=== PATIENT | male | born 1980 | race Caucasian/White ===

== ENCOUNTER 2017-02-13 03:24 | Emergency (ER) | payer MEDICAID ==
[~2017-02-13] VITALS: Ht 172.7 cm; Wt 78.0 kg
[~2017-02-13 03:24] MED LIST: BACTDS PO; CEPH-443 PO; HYDR-3498 PO
[2017-02-13 03:28] VITALS: Ht 172.7 cm; Wt 78.0 kg
--- NOTE | 2017-02-13 03:34 | ERA ---
ER Documentation Chief Complaint Date/Time DATE: 02/13/17 TIME: 03:34 Chief Complaint Bilateral Flank pain x3 days. No Dysuria or Frequency in Urination HPI The patient is a 36-year-old male, presenting to the ER because of bilateral back pain, more the right than the left intermittently for the last 3 days, worse today. The pain is 8/10, worse with movement. He denies fever, chills, neck pain, chest pain, dyspnea, complains of minimal vague right-sided abdominal discomfort. He denies dysuria, diarrhea, hematuria. He does smoke and drinks socially, denies illicit drug Past medical/surgical history: None ROS All systems reviewed and are negative except as per history of present illness. Medications Home Meds Active Scripts Ibuprofen* (Motrin*) 600 Mg Tab, 600 MG PO Q6H Y for PAIN AND OR ELEVATED TEMP, #20 TAB Prov:ASHLYN REMY MD 02/13/17 Hydrocodone/Acetaminophen ([place] 5-325 Tablet) 1 Each Tablet, 1 EACH PO QID for SEVERE PAIN LEVEL 7-10, #10 TAB Prov:ASHLYN REMY MD 02/13/17 Hydrocodone Bit-Acetaminophen* ([place]*) 5-325 Mg Tab, 1 TAB PO Q6 Y for PAIN, # 7 TAB Prov:ZOE STEWART 07/03/15 Sulfamethoxazole-Trimethoprim* (Bactrim* DS) 800-160 Mg Tab, 1 TAB PO BID for 7 Days, TAB Prov:ZOE STEWART 07/03/15 Cephalexin* (Keflex*) 500 Mg Capsule, 500 MG PO QID for 7 Days, CAP Prov:ZOE STEWART 07/03/15 Allergies Allergies: Coded Allergies: No Known Allergy (Unverified , 07/03/15) PMhx/Soc Hx Miscellaneous Medical Probl: No Hx Substance Use: No Hx Tobacco Use: Yes Physical Exam Vitals Vital Signs Date Time Temp Pulse Resp B/P Pulse Ox O2 Delivery O2 Flow Rate FiO2 02/13/17 03:28 98.3 73 20 118/72 99 Physical Exam Const: No acute distress. Head: Atraumatic. Eyes: Normal Conjunctiva. ENT: Normal External Ears, Nose and Mouth. Neck: Full range of motion. No meningismus. Resp: Clear to auscultation bilaterally. Cardio: Regular rate and rhythm, no murmurs. Abd: Soft, non distended, normal bowel sounds, right flank tenderness , no right lower quadrant, right upper quadrant, epigastric, rigidity, rebound tenderness Skin: No petechiae or rashes. Back: No midline or flank tenderness. Ext: No cyanosis, or edema. Neur: Awake and alert. No focal deficit Psych: Normal Mood and Affect. Result Diagram: 02/13/17 0345 02/13/17 0345 Results 24 hrs Laboratory Tests Test 02/13/17 03:45 02/13/17 04:00 White Blood Count 9.310^3/ul Red Blood Count 5.0110^6/ul Hemoglobin 14.7g/dl Hematocrit 43.3% Mean Corpuscular Volume 86.4fl Mean Corpuscular Hemoglobin 29.3pg Mean Corpuscular Hemoglobin Concent 33.9g/dl Red Cell Distribution Width 13.2% Platelet Count 23881^3/UL Mean Platelet Volume 9.3fl Neutrophils % 48.2% Lymphocytes % 41.7% Monocytes % 6.4% Eosinophils % 2.2% Basophils % 0.5% Nucleated Red Blood Cells % 0.0/100WBC Neutrophils # 4.510^3/ul Lymphocytes # 3.910^3/ul Monocytes # 0.610^3/ul Eosinophils # 0.210^3/ul Basophils # 0.110^3/ul Nucleated Red Blood Cells # 0.010^3/ul Sodium Level 143mmol/L Potassium Level 4.1mmol/L Chloride Level 104mmol/L Carbon Dioxide Level 24mmol/L Anion Gap 19 Blood Urea Nitrogen 12mg/dl Creatinine 0.78mg/dl Glucose Level 106mg/dl Calcium Level 9.1mg/dl Total Bilirubin 0.3mg/dl Direct Bilirubin 0.00mg/dl Indirect Bilirubin 0.3mg/dl Aspartate Amino Transf (AST/SGOT) 59IU/L Alanine Aminotransferase (ALT/SGPT) 67IU/L Alkaline Phosphatase 102IU/L Total Protein 7.8g/dl Albumin 4.6g/dl Globulin 3.20g/dl Albumin/Globulin Ratio 1.43 Lipase 82U/L Bedside Urine pH (LAB) 5.0 Bedside Urine Protein (LAB) Negative Bedside Urine Glucose (UA) Negative Bedside Urine Ketones (LAB) Negative Bedside Urine Blood 2+ Bedside Urine Nitrite (LAB) Negative Bedside Urine Leukocyte Esterase (L Negative Current Medications Medications (Trade) Dose Ordered Sig/Janine Route PRN Reason Start Time Stop Time Status Last Admin Dose Admin Sodium Chloride (NS) 1,000 ml @ 1,000 mls/hr Q1H ONCE IV 02/13/17 04:00 02/13/17 04:59 02/13/17 03:58 Morphine Sulfate (morphine) 4 mg ONCE STAT IV 02/13/17 03:54 02/13/17 03:56 DC 02/13/17 03:59 Ondansetron HCl (Zofran Inj) 4 mg ONCE STAT IV 02/13/17 03:54 02/13/17 03:56 DC 02/13/17 03:58 Ketorolac Tromethamine (Toradol) 30 mg ONCE STAT IV 02/13/17 04:26 02/13/17 04:27 UNV Procedures/[place] [id number] Radiology Main Line: [phone] DIAGNOSTIC IMAGING REPORT Patient: TANJA HANEY : 1980 Age: 36 Sex: M MR #: [id number] DOS: 02/13/17 0354 Ordering MD: ASHLYN REMY MD Location: E/R Room/Bed: PROCEDURE: CT Abdomen and pelvis without contrast. CLINICAL INDICATION: Abdominal pain. TECHNIQUE: CT scan of the abdomen and pelvis was performed on a multi- detector high-resolution CT scanner. Contiguous axial images were obtained from the lung bases to the ischial tuberosities without intravenous contrast. Coronal and sagittal reformatted images were also obtained. Images were reviewed on the PACS workstation. One or more of the following dose reduction techniques were used: - Automated exposure control. - Adjustment of the mA and/or kV according to patient size. - Use of iterative reconstruction technique. Exam CTD/vol = 12.21 mGy. Total exam DLP = 749.20 mGy-cm. COMPARISON: None. FINDINGS: Evaluation of the lung bases demonstrates minimal bibasilar atelectasis. Abdomen: The liver is normal in size. There is no focal mass or dilatation of the biliary tree. The gallbladder is not distended. The spleen, pancreas and bilateral adrenal glands are within normal limits. Bilateral kidneys are normal in size with no contour deforming mass identified. There is no radiopaque renal or ureteral calculus identified. There is no hydronephrosis or hydroureter. There is no retroperitoneal adenopathy. The abdominal aorta is of normal caliber. There is no abnormal bowel wall thickening or distension. There is no bowel obstruction or free air. A normal appendix is identified. There is no diverticulosis or diverticulitis. There is no ascites. Pelvis: The bladder is unremarkable. There is a small right inguinal hernia containing fat. The prostate and seminal vesicles are within normal limits. There is no significant pelvic adenopathy or free fluid. Evaluation of the osseous structures demonstrates no suspicious lytic or blastic lesion. IMPRESSION: No acute abnormality identified within the abdomen and pelvis. Small right inguinal hernia containing fat. .Merrill Cesar MD, MD Date Time Electronically viewed and signed by .Merrill Cesar MD, MD on 02/13/2017 04:17 .T/ CC: ASHLYN REMY MD MEDICAL MAKING DECISION: The patient is a 36-year-old male, presenting with acute right flank pain, acute hematuria, most likely due to renal colic, acute dehydration. He was treated with 1 L normal saline for acute dehydration, morphine 4 mg IV and Toradol 30 mg IV for pain and Zofran formula IV for nausea with good response. The differential diagnoses considered include but are not limited to cholelithiasis, cholecystitis, cystitis, pancreatitis, hepatitis, gastritis, peptic ulcer disease, gastric ulcer, appendicitis, diverticulitis, cholangitis, choledocholithiasis, partial small bowel obstruction. Departure Diagnosis: Primary Impression: Right flank pain Additional Impression: Hematuria Condition: Good Comments He was discharged with [place] and Motrin I discussed the findings with the patient. I advised the patient to follow-up with the primary physician in about 1-2 days, sooner if needed and return if any concern. ASHLYN REMY MD Feb 13, 2017 03:34
[2017-02-13] MEDS ORDERED: ONDANSETRON 4 MG INJ IV STA (03:54)
[2017-02-13] MEDS ORDERED: morphine 4 MG/ML VIAL IV STA (03:54)
[2017-02-13] MEDS ORDERED: SOD CHLORIDE 0.9% 1,000 ML IV ONE (04:00)
[2017-02-13 04:01] LABS: URINE BLOOD (Dip) POC 2+ (NEGATIVE)
[2017-02-13 04:07] LABS: ADD SCAN DIFF NO
[2017-02-13 04:12] LABS: BASOPHIL # 0.1 10^3/ul (0.0-0.1); BASOPHILS % 0.5 % (0.0-2.0); EOSINOPHILS # 0.2 10^3/ul (0.0-0.5); EOSINOPHILS % 2.2 % (0.0-7.0); HEMATOCRIT 43.3 % (42.0-52.0); HEMOGLOBIN 14.7 g/dl (14.0-18.0); LYMPHOCYTES # 3.9 10^3/ul (0.8-2.9); LYMPHOCYTES % 41.7 % (15.0-51.0); MEAN CORPUSCULAR HEMOGLOBIN 29.3 pg (29.0-33.0); MEAN CORPUSCULAR HGB CONC 33.9 g/dl (32.0-37.0); MEAN CORPUSCULAR VOLUME 86.4 fl (82.0-101.0); MEAN PLATELET VOLUME 9.3 fl (7.4-10.4); MONOCYTE # 0.6 10^3/ul (0.3-0.9); MONOCYTES % 6.4 % (0.0-11.0); NEUTROPHIL # 4.5 10^3/ul (1.6-7.5); NEUTROPHILS % 48.2 % (39.0-77.0); PLATELET COUNT 380 10^3/UL (140-415); RED BLOOD COUNT 5.01 10^6/ul (4.70-6.10); RED CELL DISTRIBUTION WIDTH 13.2 % (11.5-14.5); WHITE BLOOD COUNT 9.3 10^3/ul (4.8-10.8)
[2017-02-13 04:17] LABS: ALBUMIN 4.6 g/dl (3.3-4.9)
[2017-02-13 04:18] LABS: POTASSIUM 4.1 mmol/L (3.5-5.1)
--- NOTE | 2017-02-13 04:18 | RADRPT ---
PROCEDURE: CT Abdomen and pelvis without contrast. CLINICAL INDICATION: Abdominal pain. TECHNIQUE: CT scan of the abdomen and pelvis was performed on a multi-detector high-resolution CT scanner. Contiguous axial images were obtained from the lung bases to the ischial tuberosities wit hout intravenous contrast. Coronal and sagittal reformatted images were also obtained. Images were reviewed on the PACS workstation. One or more of the following dose reduction techniques were used: - Automated exposure control. - Adjustment of the mA and/or kV according to patient size. - Use of iterative reconstruction technique. Exam CTD/vol = 12.21 mGy. Total exam DLP = 749.20 mGy-cm. COMPARISON: None. FINDINGS: Evaluation of the lung bases demonstrates minimal bibasilar atelectasis. Abdomen: The liver is normal in size. There is no focal mass or dilatation of the biliary tree. T he gallbladder is not distended. The spleen, pancreas and bilateral adrenal glands are within rajat l limits. Bilateral kidneys are normal in size with no contour deforming mass identified. There is no radiopaque renal or ureteral calculus identified. There is no hydronephrosis or hydroureter. T here is no retroperitoneal adenopathy. The abdominal aorta is of normal caliber. There is no abnormal bowel wall thickening or distension. There is no bowel obstruction or free air . A normal appendix is identified. There is no diverticulosis or diverticulitis. There is no asci jonas. Pelvis: The bladder is unremarkable. There is a small right inguinal hernia containing fat. The p rostate and seminal vesicles are within normal limits. There is no significant pelvic adenopathy or free fluid. Evaluation of the osseous structures demonstrates no suspicious lytic or blastic lesion. IMPRESSION: No acute abnormality identified within the abdomen and pelvis. Small right inguinal hernia containing fat. .Merrill Cesar MD, MD Date Time Electronically viewed and signed by .Merrill Cesar MD, MD on 02/13/2017 04:17 .T/
[2017-02-13 04:20] LABS: BILIRUBIN,INDIRECT 0.3 mg/dl (0-1.1); BILIRUBIN,TOTAL 0.3 mg/dl (0.2-1.3); CREATININE 0.78 mg/dl (0.61-1.24)
[2017-02-13 04:21] LABS: ALBUMIN/GLOBULIN RATIO 1.43; CALCIUM 9.1 mg/dl (8.4-10.2); TOTAL PROTEIN 7.8 g/dl (6.1-8.1)
[2017-02-13] MEDS ORDERED: KETOROLAC 30 MG INJ IV ONE (04:26)
[2017-02-13] MEDS ORDERED: HYDR-906 PO (04:27)
[2017-02-13] MEDS ORDERED: IBUP-1542 PO (04:27)
[2017-02-13 04:46] VITALS: BP 101/70; PULSE 66; RESP 18; TEMP 98.2
== END 2017-02-13 05:13 | disposition home or self-care (01) ==
LOC: E/R 03:24
DX: R10.9 Unspecified abdominal pain (principal); R31.9 Hematuria, unspecified; F17.210 Nicotine dependence, cigarettes, uncomplicated
CPT/HCPCS: 36415; 74176; 80053; 81003; 83690; 85025; 96374; 96375; J1885; J2270; J2405; J7030; Z7502

== ENCOUNTER 2018-01-23 22:03 | Emergency (ER) | END 2018-01-24 01:10 | disposition home or self-care (01) ==

== ENCOUNTER 2018-08-15 17:26 | Emergency (ER) | END 2018-08-15 20:13 | disposition home or self-care (01) ==

== ENCOUNTER 2018-08-16 07:57 | Emergency (ER) | END 2018-08-16 08:40 | disposition home or self-care (01) ==

== ENCOUNTER 2019-04-22 11:48 | Emergency (ER) | payer MEDICAID ==
[~2019-04-22] VITALS: Ht 170.2 cm; Wt 91.2 kg
[~2019-04-22 11:48] MED LIST changes: +ACET500C5 PO; +CLIN300C10 PO; +HYDR-4011 PO; +IBUP-1542 PO; +ONDA4TAB14 PO
[2019-04-22 11:52] VITALS: Ht 170.2 cm; Wt 91.2 kg
[2019-04-22] MEDS ORDERED: ASPIRIN 325 MG TAB PO STA (12:33)
[2019-04-22] MEDS ORDERED: morphine 4 MG/ML VIAL IV STA (12:50)
[2019-04-22] MEDS ORDERED: ONDANSETRON 4 MG INJ IV STA (12:50)
[2019-04-22] MEDS ORDERED: SOD CHLORIDE 0.9% 1,000 ML IV STA (12:50)
[2019-04-22] MEDS ORDERED: NITROGLYCERIN (SL) 0.4 MG TAB SL PRN (13:00)
[2019-04-22] MEDS ORDERED: KETOROLAC 30 MG INJ IV STA (14:14)
--- NOTE | 2019-04-22 15:04 | ERD ---
ER Documentation Chief Complaint Chief Complaint right sided chest wall pain worse with deep breathing HPI This is a very pleasant 38-year-old male that presents to the emergency department complaining of right-sided chest pain. He states the pain is worse when he takes in a deep inspiration. He states the pain radiates to his back. He said no fevers or shaking or chills. He states he is never had any similar symptoms in the past. He denies any trauma to his chest wall. He smokes tobacco. He denies any left-sided chest pain that radiates to the neck or left arm. The pain he states is a sharp shooting pain. There is no alleviating or exacerbating factors to the pain. He is felt associated symptoms of nausea but denies any emesis or diaphoresis. Patient has no family history of coronary artery disease. ROS All systems reviewed and are negative except as per history of present illness. Medications Home Meds Discontinued Scripts Acetaminophen* (Tylophen*) 500 Mg Capsule, 1 CAP PO Q6H PRN for PAIN AND OR ELEVATED TEMP, #20 CAP Prov:NANCY NEGRO PA-C 08/15/18 Ondansetron (Ondansetron Odt) 4 Mg Tab.rapdis, 4 MG PO Q6H PRN for NAUSEA AND/OR VOMITING, #10 TAB Prov:NANCY NEGRO PA-C 08/15/18 Clindamycin Hcl* (Clindamycin Hcl*) 300 Mg Capsule, 300 MG PO TID for 10 Days, CAP Prov:LITA SNOW C 01/24/18 Hydrocodone/Acetaminophen ([place] 5-325 Tablet) 1 Each Tablet, 1 EACH PO Q6, #15 TAB Prov:LITA SNOW 01/24/18 Ibuprofen* (Motrin*) 600 Mg Tab, 600 MG PO Q6H PRN for PAIN AND OR ELEVATED TEMP, #20 TAB Prov:ASHLYN REMY MD 02/13/17 Hydrocodone/Acetaminophen ([place] 5-325 Tablet) 1 Each Tablet, 1 EACH PO QID for SEVERE PAIN LEVEL 7-10, #10 TAB Prov:ASHLYN REMY MD 02/13/17 Hydrocodone Bit-Acetaminophen* ([place]*) 5-325 Mg Tab, 1 TAB PO Q6 PRN for PAIN, #7 TAB Prov:ZOE STEWART 07/03/15 Sulfamethoxazole-Trimethoprim* (Bactrim* DS) 800-160 Mg Tab, 1 TAB PO BID for 7 Days, TAB Prov:ZOE STEWART 07/03/15 Cephalexin* (Keflex*) 500 Mg Capsule, 500 MG PO QID for 7 Days, CAP Prov:ZOE STEWART 07/03/15 Allergies Allergies: Coded Allergies: No Known Allergy (Unverified , 04/22/19) PMhx/Soc Medical and Surgical Hx: pt denies Medical Hx, pt denies Surgical Hx History of Surgery: No Anesthesia Reaction: No Hx Miscellaneous Medical Probl: No Hx Alcohol Use: Yes (OCCASSIONAL) Hx Substance Use: No Hx Tobacco Use: Yes (1/2pack/day) Smoking Status: Current every day smoker Physical Exam Vitals Vital Signs Date Temp Pulse Resp B/P (MAP) Pulse Ox O2 O2 Flow FiO2 Time Delivery Rate 04/22/19 99.9 102 20 141/83 98 11:52 (102) Physical Exam Constitutional:Well-developed. Well-nourished. HEENT:Normocephalic. Atraumatic.Pupils were equal round reactive to light. Moist mucous membranes.No tonsillar exudates. Neck: No nuchal rigidity. No lymphadenopathy. No posterior cervical spine tenderness or step-offs. Respiratory: Not using accessory muscles of respiration.Lungs were clear to auscultation bilaterally. No rhonchi. No rales. No wheezing. Cardiovascular: Regular rate regular rhythm.No murmurs. No rubs were appreciated.S1, S2 normal. Distal pulses are palpable 2+ bilaterally. Patient had reproducible right-sided chest wall tenderness with no crepitus no ecch ymosis no flail chest GI: Abdomen was soft. Mild tenderness in the right upper quadrant with negative Nesbitt sign. Non Distended. No pulsatile abdominal masses or bruits. No rebound. No guarding. Bowel sounds were present and normal. Muscle skeletal: Full range of motion of both the upper and lower extremities bilaterally.Normal muscle tone.No assymetrical calf tenderness or swelling. Skin: No petechia, no purpura. No lesions on the palms or the soles of the feet. No maculopapular rash. NEURO: Patient was alert, awake, orientated x3.No facial droop. Gait observed and normal with no ataxia.Speech had regular rate and rhythm. No focal neurological deficits. Result Diagram: 04/22/19 1228 04/22/19 1238 Results 24 hrs Laboratory Tests Test 04/22/19 12:28 04/22/19 12:38 White Blood Count 9.7 10^3/ul Red Blood Count 4.60 10^6/ul Hemoglobin 13.4 g/dl Hematocrit 39.3 % Mean Corpuscular Volume 85.4 fl Mean Corpuscular Hemoglobin 29.1 pg Mean Corpuscular Hemoglobin Concent 34.1 g/dl Red Cell Distribution Width 13.2 % Platelet Count 347 10^3/UL Mean Platelet Volume 9.3 fl Immature Granulocytes % 0.600 % Neutrophils % 61.0 % Lymphocytes % 28.0 % Monocytes % 7.5 % Eosinophils % 2.4 % Basophils % 0.5 % Nucleated Red Blood Cells % 0.0 /100WBC Immature Granulocytes # 0.060 10^3/ul Neutrophils # 5.9 10^3/ul Lymphocytes # 2.7 10^3/ul Monocytes # 0.7 10^3/ul Eosinophils # 0.2 10^3/ul Basophils # 0.1 10^3/ul Nucleated Red Blood Cells # 0.0 10^3/ul Prothrombin Time 12.9 Sec Prothrombin Time Ratio 1.0 INR International Normalized Ratio 0.96 Activated Partial Thromboplast Time 27.3 Sec Sodium Level 141 mmol/L Potassium Level 3.1 mmol/L Chloride Level 106 mmol/L Carbon Dioxide Level 27 mmol/L Anion Gap 8 Blood Urea Nitrogen 15 mg/dl Creatinine 0.68 mg/dl Est Glomerular Filtrat Rate mL/min > 60 mL/min Glucose Level 137 mg/dl Calcium Level 9.1 mg/dl Total Bilirubin 0.4 mg/dl Direct Bilirubin 0.00 mg/dl Indirect Bilirubin 0.4 mg/dl Aspartate Amino Transf (AST/SGOT) 44 IU/L Alanine Aminotransferase (ALT/SGPT) 87 IU/L Alkaline Phosphatase 92 IU/L Creatine Kinase 223 IU/L Creatine Kinase Index 1.3 Creatinine Kinase MB (Mass) 2.98 ng/ml Troponin I < 0.012 ng/ml B-Type Natriuretic Peptide 27 PG/ML Total Protein 6.9 g/dl Albumin 4.1 g/dl Globulin 2.80 g/dl Albumin/Globulin Ratio 1.46 Current Medications Medications Dose Sig/Janine Start Time Status Last (Trade) Ordered Route PRN Stop Time Admin Dose Reason Admin Aspirin 325 mg ONCE STAT 04/22/19 DC 04/22/19 (Aspirin) PO 12:33 12:48 04/22/19 12:35 1 tab Q5M UP TO 3 04/22/19 Nitroglycerin DOSES PRN 13:00 SL .CHEST (Nitroglyceri PAIN n (Sl Tab) 0.4 Mg) Sodium 1,000 ml @ Q1H STAT 04/22/19 DC 04/22/19 Chloride 1,000 mls/hr IV 12:50 13:06 04/22/19 13:49 Morphine 4 mg ONCE STAT 04/22/19 DC 04/22/19 Sulfate IV 12:50 13:07 (morphine) 04/22/19 12:51 Ondansetron 4 mg ONCE STAT 04/22/19 DC 04/22/19 HCl (Zofran IV 12:50 13:15 Inj) 04/22/19 12:51 Ketorolac 30 mg ONCE STAT 04/22/19 DC 04/22/19 Tromethamine IV 14:14 14:46 (Toradol) 04/22/19 14:15 Procedures/MDM The patient presented to the emergency department with chest pain. My clinical evaluation and workup was to distinguish minor causes of chest pain from acute life threatening conditions such as myocardial infarction, pulmonary embolism, aortic dissection, esophageal rupture, cardiac tamponade. The patient was placed on a manager monitoring and continuous pulse oximetry. IV access established by nursing staff. The patient received aspirin. There is no improvement of his symptoms. The pain was localized to the right chest wall and my clinical suspicion was low for myocardial infarction. However the patient had pleuritic chest pain and I did feel is necessary to obtain a CTA of the patient's chest which was negative for a pulmonary embolism or aortic dissection. Ultrasound of gallbladder showed no evidence of cholelithiasis. The patient received intravenous morphine and Zofran with improvement of his symptoms as well as Toradol. 12 Lead EKG tracing ordered and reviewed by myself showed: Normal sinus rhythm of 98 bpm and no arrhythmia. TX interval normal. QRS duration normal. No ST segment elevation No ST segment depression. No changes consistent with acute ischemia. The patient was discharged home in fair condition. They were instructed to return to the emergency department at any time if there was any worsening of their condition. The patient stated they would follow up with their PCP in the next 24-48 hours to initiate a suitable medication regimen under the care of their PCP as well as to allow their PCP to monitor any drug reactions. The patient was discharged home with prescriptions after they gave informed consent to the new medication. They were also fully informed by myself on the adverse effects and adverse drug interactions in order to provide adequate safeguards to prevent possible adverse reactions to medications. Departure Diagnosis: Primary Impression: Pleurisy Condition: SHAZIA Lawton MD April 22, 2019 15:04
[2019-04-22] MEDS ORDERED: IBUP800T48 PO (15:05)
[2019-04-22] MEDS ORDERED: SOD CHLORIDE 0.9% 100 ML ONE (16:20)
[2019-04-22] MEDS ORDERED: IOHEXOL 100 ML ONE (16:20)
[2019-04-22 18:00] VITALS: BP 127/89; PULSE 77; RESP 20
== END 2019-04-22 18:06 | disposition home or self-care (01) ==
LOC: E/R 11:48
DX: R09.1 Pleurisy (principal); F17.210 Nicotine dependence, cigarettes, uncomplicated; R11.0 Nausea
CPT/HCPCS: 71045; 71275; 76705; 80053; 82550; 82553; 83880; 84484; 85025; 85610; 85730; J1885; J2270; J2405; J7030; Q9967; Z7610; 93005; 96374; 96375